=== PATIENT | female | born 1955 | race Caucasian/White ===

== ENCOUNTER 2019-10-11 13:21 | Outpatient (CLI) | payer MEDICARE, MEDICAID, SELFPAY ==
[2019-10-11 17:11] LABS: Abs Immature Grans 0.01 k/cumm (0.0-0.09); Absolute Basophil Count 0.02 k/cumm (0.0-0.2); Absolute Eosinophil Count 0.13 k/cumm (0.0-0.7); Absolute Lymphocyte Count 1.89 k/cumm (1.2-3.4); Absolute Monocyte Count 0.64 k/cumm (0.11-0.7); Absolute Neutrophil Count 3.01 k/cumm (1.2-6.7); Basophils % 0.4; Eosinophils % 2.3; HCT 40.2 % (36.0-46.0); HGB 13.5 g/dL (12.0-15.5); Immature Grans % 0.2 %; Lymphocytes % 33.2; Mean Corp. HGB Concentration 33.6 g/dL (32.0-36.0); Mean Corpuscular Hemoglobin 29.7 pg (27.0-33.0); Mean Corpuscular Volume 88.5 fL (80-95); Mean Platelet Volume 8.5 fL (8.0-11.0); Monocytes % 11.2; Neutrophils % 52.7; Platelet Count 383 x1000/uL (130-400); RBC 4.54 m/cumm (4.00-5.20); RBC Distribution Width 13.8 % (11.7-14.6)
[2019-10-11 18:10] LABS: ESR 13 mm/hr (0-30)
[2019-10-11 19:31] LABS: ALT 32 U/L (14-59); AST 28 U/L (15-37); Albumin 3.7 g/dL (3.4-5.0); Alkaline Phosphatase 96 U/L (46-116); Anion Gap 5.7 mmol/L (3-11); BUN 10 mg/dL (7-18); Bilirubin, Total 0.2 mg/dL (0.2-1.0); CO2 27.3 mmol/L (21.0-32.0); CREATININE 0.65 mg/dL (0.55-1.02); Chloride 98 mmol/L (98-107); Glucose 92 mg/dL (74-106); Magnesium 2.3 mg/dL (1.8-2.4); Potassium 4.2 mmol/L (3.5-5.1); Sodium 131 mmol/L (136-145); TSH 2.35 uIU/mL (0.36-3.74); Total Protein 7.1 g/dL (6.4-8.2); Vitamin B12 241 pg/mL (193-986)
[2019-10-14 20:10] LABS: Pyridoxal 5-Phosphate (PLP), P 13 mcg/L (5-50)
[2019-10-15 11:03] LABS: IgA 233 mg/dL (85-499); IgG 1336 mg/dL (610-1,616); IgM 36 mg/dL (35-242)
[2019-10-15 13:37] LABS: Hemoglobin A1C 5.6 % (3.8-5.6)
[2019-10-15 14:16] LABS: Ferritin 38 ng/mL (8-252)
[2019-10-15 14:27] LABS: Vitamin D 25 Total 67.5 ng/ml (30-100)
[2019-10-15 15:09] LABS: Iron 43 ug/dL (50-170); Total Iron Binding Capacity 304 ug/dL (250-450); Transferrin Sat 14 % (15-50)
[2019-10-16 06:55] LABS: Thiamine (Vitamin B1), WB 126 nmol/L (70-180)
== END 2019-10-11 13:41 ==
PROVIDERS: PCP Naturopath; Visit Provider Naturopath
DX: R53.83 Other fatigue (principal); E43 Unspecified severe protein-calorie malnutrition; E16.2 Hypoglycemia, unspecified; E55.9 Vitamin D deficiency, unspecified; R63.4 Abnormal weight loss; K90.9 Intestinal malabsorption, unspecified; R51 Headache; R21 Rash and other nonspecific skin eruption
CPT/HCPCS: 36415; 80053; 82306; 82784; 85652; 82607; 82728; 82746; 83036; 83540; 83550; 83735; 84207; 84425; 84443; 84630; 85025

== ENCOUNTER 2020-02-29 09:33 | Outpatient (CLI) | payer MEDICARE, MEDICAID, SELFPAY ==
[2020-03-03 00:06] LABS: Patient Race White; SARS-CoV-2 RNA Undetected (Undetected); SARS-CoV-2 Specimen Source Nasopharynx
== END 2020-02-29 09:53 ==
PROVIDERS: PCP Naturopath; Visit Provider Naturopath
DX: J01.90 Acute sinusitis, unspecified (principal)
CPT/HCPCS: U0003